=== PATIENT | female | born 1965 | race Caucasian/White ===

== ENCOUNTER 2017-02-12 08:52 | Emergency (ER) | payer BC, OTHER ==
--- NOTE | 2017-02-12 10:27 | UC ---
Throat Pain/Nasal Agus HPI - HPI Summary HPI Summary: 51 female presents to with complaints of sore throat, congestion and bilateral ear pain that began 2 days ago and has been worsening. Denies fever/ chills. Admits to feeling "lousy" and fatigued. Did have 1 episode of vomiting when symptoms first began. No other complaints. No PMHx other than HTN. Has been taking matias seltzer with some relief. Admits to a slight intermittent cough that is nonproductive. - History of Current Complaint Chief Complaint: UCRespiratory Stated Complaint: BULL EAR PAIN/ST Time Seen by Provider: 02/12/17 10:08 Hx Obtained From: Patient Onset/Duration: Sudden Onset, Lasting Days, Still Present, Worse Since Severity: Moderate Pain Intensity: 6 Pain Scale Used: 0-10 Numeric Cough: Nonproductive Associated Signs & Symptoms: Positive: Dysphagia, Sinus Discomfort, Nasal Discharge - Allergies/Home Medications Allergies/Adverse Reactions: Allergies Allergy/AdvReac Type Severity Reaction Status Date / Time No Known Allergies Allergy Verified 02/12/17 09:28 Home Medications: Home Medications Bp Med 1 tab PO DAILY 02/12/17 [History] PMH/Surg Hx/FS Hx/Imm Hx - Additional Past Medical History Additional PMH: Denies DM and asthma Admits to HTN Cardiovascular History: Hypertension - Surgical History Surgical History: Yes Surgery Procedure, Year, and Place: shoulder. tubal ligation - Family History Known Family History: Positive: None - Social History Alcohol Use: Occasionally Substance Use Type: None Smoking Status (MU): Heavy Every Day Tobacco Smoker Type: Cigarettes Amount Used/How Often: 1/2ppd - Immunization History Vaccination Up to Date: Yes Review of Systems Constitutional: Negative ENT: Sore Throat, Ear Ache, Nasal Discharge, Sinus Congestion Respiratory: Cough Cardiovascular: Negative Musculoskeletal: Negative All Other Systems Reviewed And Are Negative: Yes Physical Exam Triage Information Reviewed: Yes Appearance: Well-Appearing, No Pain Distress, Well-Nourished Vital Signs: Initial Vital Signs Temp 98.4 F 02/12/17 09:25 Pulse 68 02/12/17 09:25 Resp 16 02/12/17 09:25 BP 147/84 02/12/17 09:25 Pulse Ox 100 02/12/17 09:25 slightly elevated BP patient diagnosed with BP and is medicated. recheck with pcp in 2 weeks. Vital Signs Reviewed: Yes Eyes: Positive: Conjunctiva Clear ENT: Positive: Hearing grossly normal, Pharyngeal erythema, Nasal congestion, TMs normal - serous effusion behind TM, TM red, Tonsillar swelling, Sinus tenderness - frontal b/l, Uvula midline. Negative: Nasal drainage, TM bulging, TM dull, Tonsillar exudate Dental: Negative: Percussion Tenderness @, Cervical Lymphadenopathy Neck: Positive: Supple, Nontender, No Lymphadenopathy Respiratory: Positive: Chest non-tender, Lungs clear, Normal breath sounds, No respiratory distress, No accessory muscle use. Negative: Respiratory distress, Wheezing Cardiovascular: Positive: RRR, No Murmur, Pulses Normal, Brisk Capillary Refill Musculoskeletal: Positive: Strength Intact, ROM Intact Neurological: Positive: Alert Skin Exam: Normal Throat Pain/Nasal Course/Dx - Course Course Of Treatment: appears to be suffering a URI due to symptoms and PE findings. no concerns for other etiology at this time. symptomatic treatment mucinex, claritin, saline rinses, chloraseptic spray, salt water gargles. follow up. fluids. rest. patient is aware of worsening signs and symptoms. - Differential Dx/Diagnosis Differential Diagnosis/HQI/PQRI: Mononucleosis, Pharyngitis, Tonsillitis, URI Provider Diagnoses: URI Discharge - Discharge Plan Condition: Stable Disposition: HOME Patient Education Materials: Upper Respiratory Infection (ED) Forms: *Work Release Additional Instructions: Take OTC Mucinex and Claritin daily. Increase fluid intake and get plenty of rest. Recommend using oscar pots or nasal saline rinses. Ibuprofen/tylenol as needed for discomfort and inflammation. Chloraseptic spray and gargling with salt water to help with sore throat. Follow up with PCP. Any new or worsening symptoms please seek medical attention.
== END 2017-02-12 10:42 | disposition home or self-care (01) ==
LOC: UCCORT 08:52
DX: J06.9 Acute upper respiratory infection, unspecified (principal); Z72.0 Tobacco use; I10 Essential (primary) hypertension
CPT/HCPCS: 87651; 99201; G0463

== ENCOUNTER 2017-12-04 07:21 | Emergency (ER) | payer BC ==
[2017-12-04 07:38] VITALS: BP 111/75
[2017-12-04] MEDS ORDERED: Ipratropium 0.5MG/2.5ML NEB* 0.5 MG/2.5 ML NEB.SOLN INH ONE (07:47)
[2017-12-04] MEDS ORDERED: Albuterol 2.5 MG/3 ML NEB.SOL* (0.083%) INH ONE (07:47)
[2017-12-04] MEDS ORDERED: predniSONE TAB* 20 MG PO ONE (07:47)
--- NOTE | 2017-12-04 07:48 | UC ---
Respiratory Complaint HPI - HPI Summary HPI Summary: The patient is a 52-year-old female with a 4-5 day history of cough and congestion. She states she has been unable to smoke for the past 4 days due to wheezing. She has had to use nebulizers and handheld metered-dose inhalers in the past for bronchitis. She smokes about a half a pack of cigarettes per day. She has had some myalgias. Denies any chest pain. She has had no fever. She has a history of hypertension. - History of Current Complaint Chief Complaint: UCRespiratory Stated Complaint: COUGH/CONGESTION Time Seen by Provider: 12/04/17 07:40 Hx Obtained From: Patient Onset/Duration: Gradual Onset, Lasting Days Timing: Constant Severity Initially: Mild Severity Currently: Moderate Pain Intensity: 0 Pain Scale Used: 0-10 Numeric Character: Cough: Productive Aggravating Factors: Exertion, Deep Breaths, Recumbent Position Alleviating Factors: Nothing Associated Signs And Symptoms: Positive: Wheezing Related History: Similar Episode/Dx as: - bronchitis - Allergies/Home Medications Allergies/Adverse Reactions: Allergies Allergy/AdvReac Type Severity Reaction Status Date / Time No Known Allergies Allergy Verified 12/04/17 07:30 Home Medications: Home Medications Dextromethorphan Hb/Doxylamine [Night Time Cough Liquid] 237 ml PO PRN 12/04/17 [History] amLODIPine TAB* [Norvasc 5 mg TAB*] 5 mg PO DAILY 12/04/17 [History Confirmed ] PMH/Surg Hx/FS Hx/Imm Hx Previously Healthy: Yes Cardiovascular History: Hypertension Respiratory History: Bronchitis, Pneumonia - Surgical History Surgical History: Yes Surgery Procedure, Year, and Place: shoulder. tubal ligation - Family History Known Family History: Positive: Hypertension, Diabetes Negative: Respiratory Disease - Social History Alcohol Use: Occasionally Substance Use Type: None Smoking Status (MU): Heavy Every Day Tobacco Smoker Type: Cigarettes Amount Used/How Often: 1/2ppd Cessation Counseling: Patient Advised to Stop - Immunization History Vaccination Up to Date: Yes Review of Systems Constitutional: Fatigue Skin: Negative Eyes: Negative ENT: Negative Respiratory: Cough Cardiovascular: Negative Gastrointestinal: Negative Genitourinary: Negative Motor: Negative Neurovascular: Negative Musculoskeletal: Negative Neurological: Negative Psychological: Negative All Other Systems Reviewed And Are Negative: Yes Physical Exam Triage Information Reviewed: Yes Appearance: Well-Appearing, No Pain Distress, Well-Nourished Vital Signs: Initial Vital Signs Temp 98.1 F 12/04/17 07:32 Pulse 73 12/04/17 07:32 Resp 18 12/04/17 07:32 BP 111/75 12/04/17 07:32 Pulse Ox 96 12/04/17 07:32 Vital Signs Reviewed: Yes Eye Exam: Normal Eyes: Positive: Conjunctiva Clear ENT: Positive: Hearing grossly normal. Negative: Nasal congestion, Nasal drainage, Tonsillar swelling, Tonsillar exudate, Hoarse voice Neck: Positive: Supple, Nontender Respiratory: Positive: No respiratory distress, No accessory muscle use, Wheezing Cardiovascular: Positive: RRR Abdomen Description: Positive: Soft Neurological: Positive: Alert, Muscle Tone Normal Psychological Exam: Normal Skin Exam: Normal UC Diagnostic Evaluation - Laboratory O2 Sat by Pulse Oximetry: 96 - normal, not hypoxic Re-Evaluation - Re-Evaluation First Eval Re-Evaluation Time: 08:19 Change: Improved - lungs clear Respiratory Course/Dx - Differential Dx/Diagnosis Provider Diagnoses: acute bronchitis with bronchospasm Discharge - Sign-Out/Discharge Documenting (check all that apply): Patient Departure All imaging exams completed and their final reports reviewed: No Studies - Discharge Plan Condition: Stable Disposition: HOME Patient Education Materials: Acute Bronchitis (ED) Referrals: Snehal Rivera MD [Primary Care Provider] - 4 Days (recheck next week) - Billing Disposition and Condition Condition: STABLE Disposition: Home
[2017-12-04] MEDS ORDERED: Albuterol HFA INHALER* 8 gm MDI INH ONE (08:20)
== END 2017-12-04 08:35 | disposition home or self-care (01) ==
LOC: UCCORT 07:21
DX: J20.9 Acute bronchitis, unspecified (principal); I10 Essential (primary) hypertension; F17.210 Nicotine dependence, cigarettes, uncomplicated
CPT/HCPCS: 99213; A9270-GY; G0463; J7512

== ENCOUNTER 2019-02-19 07:15 | Emergency (ER) | payer BC ==
[2019-02-19 07:27] VITALS: BP 147/100
--- NOTE | 2019-02-19 07:43 | UC ---
Throat Pain/Nasal Agus HPI - HPI Summary HPI Summary: 53-year-old female comes in with a chief complaint of 2 days of rhinorrhea sore throats body aches. Rhinorrhea is yellow. Patient feels like she has postnasal drip causing her sore throat. No complaint of any shortness of breath. Patient does have ear pain in the left is worse than the right. - History of Current Complaint Chief Complaint: UCRespiratory Stated Complaint: BODY ACHES COUGH EARS Time Seen by Provider: 02/19/19 07:20 Pain Intensity: 7 - Allergies/Home Medications Allergies/Adverse Reactions: Allergies Allergy/AdvReac Type Severity Reaction Status Date / Time hydrocodone Allergy Hives Verified 02/19/19 07:25 Home Medications: Home Medications Dm/PE/Acetaminophen/Doxylamine [Vicks Dayquil/Nyquil Cold] 2 cap PO Q6H PRN [History Confirmed 02/19/19] PMH/Surg Hx/FS Hx/Imm Hx Previously Healthy: Yes Cardiovascular History: Hypertension - Surgical History Surgical History: Yes Surgery Procedure, Year, and Place: shoulder. tubal ligation - Family History Known Family History: Positive: None, Hypertension, Diabetes Negative: Respiratory Disease - Social History Alcohol Use: Occasionally Substance Use Type: None Smoking Status (MU): Heavy Every Day Tobacco Smoker Type: Cigarettes Amount Used/How Often: 1/2 PPD Length of Time of Smoking/Using Tobacco: Since Age 16 Household Exposure Type: Cigarettes - Immunization History Vaccination Up to Date: Yes Review of Systems All Other Systems Reviewed And Are Negative: Yes Constitutional: Positive: Other - see hpi Skin: Positive: Negative Eyes: Positive: Negative ENT: Positive: Ear Ache, Nasal Discharge, Sinus Congestion, Sinus Pain/ Tenderness Respiratory: Positive: Negative Cardiovascular: Positive: Negative Gastrointestinal: Positive: Negative Motor: Positive: Negative Neurovascular: Positive: Negative Musculoskeletal: Positive: Negative Neurological: Positive: Negative Psychological: Positive: Negative Is Patient Immunocompromised?: No Physical Exam Triage Information Reviewed: Yes Appearance: No Pain Distress, Well-Nourished, Ill-Appearing - mild Vital Signs: Initial Vital Signs Temp 97.5 F 02/19/19 07:23 Pulse 75 02/19/19 07:23 Resp 18 02/19/19 07:23 BP 147/100 02/19/19 07:23 Pulse Ox 100 02/19/19 07:23 Vital Signs Reviewed: Yes Eye Exam: Normal Eyes: Positive: Conjunctiva Clear ENT: Positive: Pharyngeal erythema, Nasal congestion, Nasal drainage, TM red - rt Neck: Positive: Supple Respiratory: Positive: Lungs clear, Normal breath sounds, No respiratory distress Cardiovascular: Positive: RRR Musculoskeletal: Positive: Strength Intact, ROM Intact Neurological: Positive: Alert, Muscle Tone Normal Psychological: Positive: Age Appropriate Behavior Skin Exam: Normal Throat Pain/Nasal Course/Dx - Course Course Of Treatment: DISCUSSED VIRAL VERSES BACTERIAL INFECTIONS AND THE ROLE OF ANTIBIOTICS. THE PATIENT PREFERS TO BE ON ANTIBIOTICS AT THIS TIME. - Differential Dx/Diagnosis Provider Diagnosis: Upper respiratory infection Discharge ED - Sign-Out/Discharge Documenting (check all that apply): Patient Departure All imaging exams completed and their final reports reviewed: No Studies - Discharge Plan Condition: Stable Disposition: HOME Prescriptions: Azithromyxin DEX (NF) [Z-Dex (Zithromax) 250 mg tabs #6] 2 tab PO .TODAY, THEN 1 DAILY #6 tab Patient Education Materials: Upper Respiratory Infection (ED) Referrals: Snehal Rivera MD [Primary Care Provider] - Additional Instructions: FOLLOW UP WITH YOUR DOCTOR IF NOT COMPLETELY IMPROVED. GET REEVALUATED SOONER IF NOT IMPROVING OR WORSE OR ANY QUESTIONS OR CONCERNS. - Billing Disposition and Condition Condition: STABLE Disposition: Home
[2019-02-19 07:50] LABS: Influenza A Molecular NEGATIVE (Negative); Influenza B Molecular NEGATIVE (Negative)
== END 2019-02-19 07:58 | disposition home or self-care (01) ==
LOC: UCCORT 07:15
DX: J06.9 Acute upper respiratory infection, unspecified (principal); I10 Essential (primary) hypertension; H92.03 Otalgia, bilateral; J34.89 Other specified disorders of nose and nasal sinuses; F17.210 Nicotine dependence, cigarettes, uncomplicated; Z88.5 Allergy status to narcotic agent
CPT/HCPCS: 99212; G0463